=== PATIENT | female | born 1990 | race Caucasian/White ===

== ENCOUNTER 2020-05-26 08:42 | Emergency (ER) | payer MEDICAID ==
[2020-05-26] MEDS ORDERED: Ondansetron 4 MG Tab.DIS PO ONE (08:57)
[2020-05-26] MEDS ORDERED: Ondansetron 4 MG Tab.DIS ONE (09:08)
--- NOTE | 2020-05-26 09:36 | EDM.PDOC ---
ED HPI GENERAL MEDICAL PROBLEM - General Chief Complaint: General Stated Complaint: ABD PAIN Time Seen by Provider: 05/26/20 09:25 Source of Information: Reports: Patient History Limitations: Reports: No Limitations - History of Present Illness INITIAL COMMENTS - FREE TEXT/NARRATIVE: patient presented to the ER with a c/o RLQ started 24 hrs ago. was proceeded with loose stool and diarrhea for 3 days. reports pain as progressive, sharp, 8 out of 10, worse with movement. h/o laparoscopic oophorectomy, but still has her appendix. No fever or chills. Reports some nausea and loss of appetite. Onset: Today Duration: Day(s): (1) Location: Reports: Abdomen Quality: Reports: Sharp Severity: Moderate Worsens with: Reports: Movement Right Abdomen Pain Score (Numeric/FACES): 6 - Related Data Allergies Allergy/AdvReac Type Severity Reaction Status Date / Time No Known Allergies Allergy Verified 05/26/20 08:59 Home Meds: Home Meds Venlafaxine [Effexor] 225 mg PO DAILY 05/26/20 [History] Past Medical History [employer] History: Reports: Other [employer] History: hysterectomy Psychiatric History: Reports: Depression - Infectious Disease History Infectious Disease History: Reports: Chicken Pox Social & Family History - Family History Family Medical History: No Pertinent Family History - Tobacco Use Tobacco Use Status *Q: Current Every Day Tobacco User Years of Tobacco use: 10 Packs/Tins Daily: 0.5 - Caffeine Use Caffeine Use: Reports: Energy Drinks, Soda - Alcohol Use Date of Last Drink: 05/02/20 - Recreational Drug Use Recreational Drug Use: No ED ROS GENERAL - Review of Systems Review Of Systems: See Below Constitutional: Reports: No Symptoms HEENT: Reports: No Symptoms Respiratory: Reports: No Symptoms Cardiovascular: Reports: No Symptoms GI/Abdominal: Reports: Abdominal Pain, Decreased Appetite : Reports: No Symptoms Musculoskeletal: Reports: No Symptoms Skin: Reports: No Symptoms ED EXAM, GENERAL - Physical Exam Exam: See Below Exam Limited By: No Limitations General Appearance: Alert, No Apparent Distress, Mild Distress Respiratory/Chest: No Respiratory Distress, Lungs Clear Cardiovascular: Normal Peripheral Pulses GI/Abdominal: Soft, No Distention, Tender Extremities: Normal Inspection Neurological: Alert, Oriented, No Motor/Sensory Deficits Psychiatric: Normal Affect Course - Vital Signs Last Recorded V/S: Last Vital Signs Temp 36.8 C 05/26/20 09:05 Pulse 61 05/26/20 10:14 Resp 16 05/26/20 10:14 BP 121/79 05/26/20 09:05 Pulse Ox 98 05/26/20 10:14 - Orders/Labs/Meds Orders: Active Orders 24 hr Category Date Time Status Abdomen Pelvis w Cont [CT] Stat Exams 05/26/20 09:48 Ordered STOOL CULTURE Urgent Lab 05/26/20 09:37 Ordered Iopamidol [Isovue-300 (61%)] Med 05/26/20 10:00 Active 100 ml IV . DIRECTED Sodium Chloride 0.9% [Normal Saline] 1,000 ml Med 05/26/20 10:30 Active IV .BOLUS Sodium Chloride 0.9% [Saline Flush] Med 05/26/20 09:49 Active 10 ml FLUSH ASDIRECTED PRN Saline Lock Insert [OM.PC] Routine Oth 05/26/20 09:49 Ordered Medication Orders Sodium Chloride (Normal Saline) 1,000 mls @ 999 mls/hr IV .BOLUS ONE Stop: 05/26/20 11:30 Last Admin: 05/26/20 10:34 Dose: 999 mls/hr Documented by: KENYA Iopamidol (Isovue-300 (61%)) 100 ml IV . DIRECTED CRYSTAL Stop: 05/26/20 23:59 Last Admin: 05/26/20 10:17 Dose: 100 ml Documented by: ROCHELLE Sodium Chloride (Saline Flush) 10 ml FLUSH ASDIRECTED PRN PRN Reason: Keep Vein Open Last Admin: 05/26/20 09:58 Dose: 10 ml Documented by: KENYA Labs: Laboratory Tests 05/26/20 05/26/20 05/26/20 Range/Units 09:20 09:20 09:20 WBC 10.7 (4.0-11.0) K/uL RBC 5.04 (3.80-5.80) M/uL Hgb 15.2 (11.5-16.5) g/dL Hct 44.1 (37.0-47.0) % MCV 88 (76-96) fL MCH 30.2 (27.0-32.0) pg MCHC 34.5 (31.0-35.0) g/dL RDW 13.2 (11.0-16.0) % Plt Count 326 (150-500) K/uL MPV 10.1 H (6.0-10.0) fL Neut % (Auto) 52.4 (45.0-70.0) % Lymph % (Auto) 33.4 (20.0-40.0) % Coles % (Auto) 7.9 (3.0-10.0) % Eos % (Auto) 6.0 H (1.0-5.0) % Baso % (Auto) 0.3 (0.0-0.5) % Neut # (Auto) 5.62 (2.00-7.50) K/uL Lymph # (Auto) 3.58 (1.50-4.00) K/uL Coles # (Auto) 0.85 H (0.20-0.80) K/uL Eos # (Auto) 0.64 H (0.04-0.40) K/uL Baso # (Auto) 0.03 (0.02-0.10) K/uL Sodium (136-145) mmol/L Potassium (3.5-5.1) mmol/L Chloride (98-107) mmol/L Carbon Dioxide (21.0-32.0) mmol/L Anion Gap (5.0-15.0) mmol/L BUN (8-26) mg/dL Creatinine (0.55-1.02) mg/dL Est Cr Clr Drug Dosing mL/min Estimated GFR (MDRD) (>60) MLS/MIN BUN/Creatinine Ratio (6-25) Glucose (74-100) mg/dL Calcium (8.5-10.1) mg/dL Total Bilirubin (0.0-1.0) mg/dL AST (15-37) U/L ALT (12-78) U/L Alkaline Phosphatase (46-116) U/L Total Protein (6.4-8.2) g/dL Albumin (3.4-5.0) g/dL Globulin (2.2-4.2) g/dL Albumin/Globulin Ratio (0.8-2.0) Urine Color Yellow Urine Appearance Clear (CLEAR) Urine pH 5.5 (5.0-8.0) Ur Specific [place] >= 1.030 (1.003-1.030) Urine Protein Negative (NEGATIVE) mg/dL Urine Glucose (UA) Negative (NEGATIVE) mg/dL Urine Ketones Negative (NEGATIVE) mg/dL Urine Occult Blood Negative (NEGATIVE) Urine Nitrite Negative (NEGATIVE) Urine Bilirubin Negative (NEGATIVE) Urine Urobilinogen 0.2 (0.2-1.0) E.U./dL Ur Leukocyte Esterase Negative (NEGATIVE) Urine HCG, Qual Negative (NEGATIVE) 05/26/20 Range/Units 09:20 WBC (4.0-11.0) K/uL RBC (3.80-5.80) M/uL Hgb (11.5-16.5) g/dL Hct (37.0-47.0) % MCV (76-96) fL MCH (27.0-32.0) pg MCHC (31.0-35.0) g/dL RDW (11.0-16.0) % Plt Count (150-500) K/uL MPV (6.0-10.0) fL Neut % (Auto) (45.0-70.0) % Lymph % (Auto) (20.0-40.0) % Coles % (Auto) (3.0-10.0) % Eos % (Auto) (1.0-5.0) % Baso % (Auto) (0.0-0.5) % Neut # (Auto) (2.00-7.50) K/uL Lymph # (Auto) (1.50-4.00) K/uL Coles # (Auto) (0.20-0.80) K/uL Eos # (Auto) (0.04-0.40) K/uL Baso # (Auto) (0.02-0.10) K/uL Sodium 141 (136-145) mmol/L Potassium 3.9 (3.5-5.1) mmol/L Chloride 106 (98-107) mmol/L Carbon Dioxide 23.6 (21.0-32.0) mmol/L Anion Gap 15.3 H (5.0-15.0) mmol/L BUN 13 (8-26) mg/dL Creatinine 0.76 (0.55-1.02) mg/dL Est Cr Clr Drug Dosing 108.13 mL/min Estimated GFR (MDRD) > 60 (>60) MLS/MIN BUN/Creatinine Ratio 17.1 (6-25) Glucose 97 (74-100) mg/dL Calcium 8.1 L (8.5-10.1) mg/dL Total Bilirubin 0.5 (0.0-1.0) mg/dL AST 19 (15-37) U/L ALT 21 (12-78) U/L Alkaline Phosphatase 101 (46-116) U/L Total Protein 7.1 (6.4-8.2) g/dL Albumin 3.8 (3.4-5.0) g/dL Globulin 3.3 (2.2-4.2) g/dL Albumin/Globulin Ratio 1.2 (0.8-2.0) Urine Color Urine Appearance (CLEAR) Urine pH (5.0-8.0) Ur Specific [place] (1.003-1.030) Urine Protein (NEGATIVE) mg/dL Urine Glucose (UA) (NEGATIVE) mg/dL Urine Ketones (NEGATIVE) mg/dL Urine Occult Blood (NEGATIVE) Urine Nitrite (NEGATIVE) Urine Bilirubin (NEGATIVE) Urine Urobilinogen (0.2-1.0) E.U./dL Ur Leukocyte Esterase (NEGATIVE) Urine HCG, Qual (NEGATIVE) Meds: Medications Generic Name Dose Route Start Last Admin Trade Name Freq PRN Reason Stop Dose Admin Sodium Chloride 1,000 mls @ 999 mls/hr 05/26/20 10:30 05/26/20 10:34 Normal Saline IV 05/26/20 11:30 999 mls/hr .BOLUS ONE Administration Iopamidol 100 ml 05/26/20 10:00 05/26/20 10:17 Isovue-300 (61%) IV 05/26/20 23:59 100 ml . DIRECTED CRYSTAL Administration Sodium Chloride 10 ml 05/26/20 09:49 05/26/20 09:58 Saline Flush FLUSH 10 ml ASDIRECTED PRN Administration Keep Vein Open Discontinued Medications Generic Name Dose Route Start Last Admin Trade Name Freq PRN Reason Stop Dose Admin Morphine Sulfate 4 mg 05/26/20 09:48 05/26/20 09:58 Morphine IVPUSH 05/26/20 09:49 4 mg ONETIME ONE Administration Morphine Sulfate Confirm 05/26/20 10:05 05/26/20 10:01 Morphine Administered 05/26/20 10:06 Not Given Dose 4 mg .ROUTE .STK-MED ONE Ondansetron HCl 4 mg 05/26/20 08:57 05/26/20 08:59 Zofran Odt PO 05/26/20 08:58 4 mg ONETIME ONE Administration Ondansetron HCl Confirm 05/26/20 09:08 05/26/20 09:29 Zofran Odt Administered 05/26/20 09:09 Not Given Dose 4 mg .ROUTE .STK-MED ONE Sodium Chloride 50 ml 05/26/20 10:00 05/26/20 10:17 Normal Saline FLUSH 05/26/20 10:01 50 ml ONETIME ONE Administration - Re-Assessments/Exams Free Text/Narrative Re-Assessment/Exam: upon arrival to the ER - vitals and labs were obtained nausea was controlled with zofran pain was controlled Morphine 4mg IV labs - no leukocytosis, but given the location of pain ( RLQ ) and the history of pain - decision is to obtain a CT scan abd/pelv - to rule out intra abdominal pathology/infection. 05/26/20 11:23 CT abd/pelv report showed possible colitis in distal descending colon. no e/o acute appendicitis. no free fluids. Some + loose stool. patient was not able to provide stool sample while in the ER. Departure - Departure Time of Disposition: 11:25 Disposition: Home, Self-Care 01 Condition: Good Clinical Impression: Colitis Abdominal pain Qualifiers: Abdominal location: right lower quadrant Qualified Code(s): R10.31 - Right lower quadrant pain - Discharge Information *PRESCRIPTION DRUG MONITORING PROGRAM REVIEWED*: Not Applicable *COPY OF PRESCRIPTION DRUG MONITORING REPORT IN PATIENT JUJU: Not Applicable Referrals: PCP,None [Primary Care Provider] - Forms: ED Department Discharge Sepsis Event Note (ED) - Evaluation Sepsis Screening Result: No Definite Risk - Focused Exam Vital Signs: Vital Signs Temp Pulse Resp BP Pulse Ox 05/26/20 10:14 61 16 98 05/26/20 10:06 62 16 98 05/26/20 09:05 36.8 C 63 16 121/79 100 05/26/20 08:46 36.8 C 63 16 121/79 100 - Problem List & Annotations (1) Abdominal pain SNOMED Code(s): 48305805 Code(s): R10.9 - UNSPECIFIED ABDOMINAL PAIN Status: Acute Priority: Medium Current Visit: Yes Qualifiers: Abdominal location: right lower quadrant Qualified Code(s): R10.31 - Right lower quadrant pain (2) Colitis SNOMED Code(s): 40340130 Code(s): K52.9 - NONINFECTIVE GASTROENTERITIS AND COLITIS, UNSPECIFIED Status: Acute Priority: Medium Current Visit: Yes - Problem List Review Problem List Initiated/Reviewed/Updated: Yes - My Orders Last 24 Hours: My Active Orders 05/26/20 09:37 STOOL CULTURE Urgent 05/26/20 09:48 Abdomen Pelvis w Cont [CT] Stat 05/26/20 09:49 Sodium Chloride 0.9% [Saline Flush] 10 ml FLUSH ASDIRECTED PRN Saline Lock Insert [OM.PC] Routine 05/26/20 10:00 Iopamidol [Isovue-300 (61%)] 100 ml IV . DIRECTED 05/26/20 10:30 Sodium Chloride 0.9% [Normal Saline] 1,000 ml IV .BOLUS - Assessment/Plan Last 24 Hours: My Active Orders 05/26/20 09:37 STOOL CULTURE Urgent 05/26/20 09:48 Abdomen Pelvis w Cont [CT] Stat 05/26/20 09:49 Sodium Chloride 0.9% [Saline Flush] 10 ml FLUSH ASDIRECTED PRN Saline Lock Insert [OM.PC] Routine 05/26/20 10:00 Iopamidol [Isovue-300 (61%)] 100 ml IV . DIRECTED 05/26/20 10:30 Sodium Chloride 0.9% [Normal Saline] 1,000 ml IV .BOLUS Plan: - given stable vitals and assuring labs - decision is to treat patient as outpatient with oral abx. Will start flagyl 500mg PO BID. Zofran PRn. - start taking probiotics daily - zofran PRN - increase fluids intake - follow up with PCP in 1-2 weeks - return to the ER if symptoms got worse or any concerns
[2020-05-26] MEDS ORDERED: Morphine 4 MG/ML VIAL IVPUSH ONE (09:48)
[2020-05-26] MEDS ORDERED: Sodium Chloride 0.9% 10 ML Syringe FLUSH PRN (09:49)
[2020-05-26] MEDS ORDERED: Iopamidol 612 MG/ML 100 ML Bottle IV SCH (10:00)
[2020-05-26] MEDS ORDERED: Sodium Chloride 0.9% 50 ML SDV FLUSH ONE (10:00)
[2020-05-26] MEDS ORDERED: Morphine 4 MG/ML VIAL ONE (10:05)
[2020-05-26] MEDS ORDERED: Sodium Chloride 0.9% 1,000 ML IV ONE (10:30)
--- NOTE | 2020-05-27 11:13 | CT ---
DATE OF SERVICE: 05/26/2020 CLINICAL DATA: Abdominal pain Enhanced abdomen and pelvic CT: Multi slice acquisition through the abdomen and pelvis with IV, but without oral contrast was performed. No priors. There are minimal atelectatic changed in the dependent portion of both lower lungs. The lung bases are otherwise clear. The heart size is normal. There is mild diffuse fatty infiltration of the liver. No focal hepatic lesions. The gallbladder appears normal. No biliary duct dilatation. The spleen appears normal. The pancreas appears normal. The right and left adrenals appear normal. The right and left kidneys enhance symmetrically. No hydronephrosis or hydroureter. The bladder is partially fluid filled. It appears normal. The patient is status post hysterectomy. The appendix is not dilated. No evidence of appendicitis. There is a moderate amount of stool noted within the ascending and transverse colon. There is mural thickening within the descending and sigmoid colon. This is probably related to nondistention. Colitis should be considered. No free air. No free fluid. No dilated loops of bowel. No adenopathy. No aortic aneurysm. There is small low-density lesions in the left ovary consistent with small cysts. There is a small fat containing umbilical hernia. No other significant findings. Thank you for allowing us to participate in the care of your patient. JAYY
== END 2020-05-26 11:48 | disposition home or self-care (01) ==
LOC: LB.ED 08:42
DX: K52.9 Noninfective gastroenteritis and colitis, unspecified (principal); Z72.0 Tobacco use; Z90.710 Acquired absence of both cervix and uterus; Z90.722 Acquired absence of ovaries, bilateral
CPT/HCPCS: 36415; 74177; 80053; 81003; 81025; 85025; 87045; 87046; 87427; 96374; 99284; 99284-25; A9270-GY; J2270; J7030; Q9967